=== PATIENT | female | born 1985 | race Caucasian/White ===

== ENCOUNTER 2017-10-26 21:50 | Emergency (ER) | END 2017-10-27 01:27 | disposition home or self-care (01) ==

== ENCOUNTER 2018-04-30 17:33 | Inpatient (IN) | payer MEDICAID ==
[~2018-04-30] VITALS: Ht 165.1 cm; Wt 81.4 kg
[~2018-04-30 17:33] MED LIST: ACET500C5 PO
[2018-04-30 19:04] VITALS: BP 131/70; PULSE 76; RESP 18; Ht 165.1 cm; Wt 81.4 kg
[2018-04-30] MEDS ORDERED: AL HYDROX/MG HYDROX/SIMETH 30 ML CUP PO PRN (21:30)
[2018-04-30] MEDS ORDERED: ACETAMINOPHEN 325 MG TAB PO PRN (21:30)
[2018-04-30] MEDS: DEXAMETHASONE 4 MG/ML 5 ML INJ IM SCH (22:31)
--- NOTE | 2018-04-30 23:03 | TRIAGE ---
OB Triage Datetime Report Generated by CPN: 04/30/2018 23:02 Datetime: 04/30/2018 22:17 Vaginal Exam Membrane Status: Intact Datetime: 04/30/2018 21:22 Stage of : OB Triage Monitor Mode: External Quality: Mild Pattern: Normal: <= 5 Contractions in 10 Minutes Resting Tone [place]: Relaxed Heart Rate FHR Baseline Rate: 135 Monitor Mode: External US FHR Baseline Changes: No Baseline Change Variability: Moderate 6-25 bpm Accelerations: 15X15 Decelerations: None Category: Category I Datetime: 04/30/2018 20:30 Stage of : OB Triage Labor Evaluation Frequency: 4-10 Monitor Mode: External Duration (sec)2399: 40 Quality: Mild Pattern: Normal: <= 5 Contractions in 10 Minutes Resting Tone [place]: Relaxed Heart Rate FHR Baseline Rate: 140 Monitor Mode: External US FHR Baseline Changes: No Baseline Change Variability: Moderate 6-25 bpm Accelerations: 15X15 Decelerations: Variable Category: Category II Pain Assessment Pain Scale: 3 Pain Presence: Intermittent Pain Type: Cramping Pain Location: Abdomen Datetime: 04/30/2018 19:50 Stage of : OB Triage Monitor Mode: External Quality: Mild Pattern: Normal: <= 5 Contractions in 10 Minutes Resting Tone [place]: Relaxed Heart Rate FHR Baseline Rate: 145 Monitor Mode: External US FHR Baseline Changes: No Baseline Change Variability: Moderate 6-25 bpm Accelerations: 15X15 Decelerations: None Category: Category I Datetime: 04/30/2018 19:17 Time of Arrival: 04/30/2018 17:28 EGA: 33.4 Arrived By: Ambulatory Arrived From: Home Chief Complaint: SENT FROM CLINIC FOR EVALUATION OF hbp AND CRAMPING Movement: Present Contractions: Irregular Time Contractions Began: 04/30/2018 13:00 Rupture of Membranes: Denies Vaginal Bleeding: None Vaginal Discharge: Denies Recent Sexual Intercouse: Denies Abdominal Trauma: Not Applicable Patient Complaints: Cramping Time Provider Notified: 04/30/2018 19:00 Provider Notified: Dr Burgess Initial Plan: EFM,CBC,UA,URINE CULTURE,CMP,URIC ACID,BPP,EFW,CVL Datetime: 04/30/2018 19:01 Stage of : OB Triage Maternal Assessment Level of Consciousness: Fully Conscious DTR's/Clonus: DTRs 2+; No Clonus Headache: Denies Blurred Vision: No Respiratory Effort: Unlabored Nausea/Vomiting: Denies RUQ Epigastric Pain: Denies Facial Edema: None Monitor Mode: External Resting Tone [place]: Relaxed Monitor Mode: External US Comments: FHT 150 Pain Assessment Pain Scale: 5 Pain Presence: Intermittent Pain Type: Cramping Pain Location: Abdomen
--- NOTE | 2018-05-01 00:33 | HP ---
Date/Time of Note Date/Time of Note DATE: 05/01/18 TIME: 00:11 OB - History Hx of Present Free Text/Dictation 33 y.o at 33w4d sent from clinic for high BP which was at the office 157/96 here at triage 120-130/70 EFM revealed mild frequent uterine activities but CVL 3.9 U.S shows EFW 1787 with 9% with 32w measurement compare to her GA which was 33w4d BPP 8/8 DOREEN 12.92 will admit to antepartum for further observation of BP and preinatalogy consultation for IUGR and slso give BMZ for preparation of possible early delivery. Chief Complaint: high BP and abdominal cramping pain sine 1210 on 04/30/18 Estimated Due Date: Jun 14, 2018 : 5 Para: 4 Spontaneous : 0 Care: Good Care Ultrasounds: Normal mid trimester US Obstetrical Complications: Gestational Diabetes, Gestational Hypertension Medical Complications: None Past Family/Social History * Past Medical, Surgical, Family and Obstetric Histories reviewed from chart. Blood Type: O+ Rubella: immune RPR/VDRL: Negative GBS Status: Unknown HBsAG: Negative OB Admission Exam Physical Exam HEENT: WNL Heart: Rhythm Normal Lungs: Clear, Equal Abdomen: WNL Extremities: Normal Reflexes: Normal Cervical Dilatation: other Effacement: Other Station: Other Membranes: Intact Amniotic Fluid: Unevaluable Heart Rate: 130's Accelerations: Accelerations Present Decelerations: No Decelerations Varibility: Moderate Contractions on Admission: < 5 Minutes Apart Intensity: Mild Last 72 hours Lab Results CBC & BMP 04/30/18 19:50 Liver Function Test 04/30/18 19:50 Alanine Aminotransferase (ALT/SGPT) 23 Albumin 3.4 Alkaline Phosphatase 170 H Aspartate Amino Transf (AST/SGOT) 24 Direct Bilirubin 0.00 Total Protein 6.8 OB Assessment/Plan Reason for admission: labor, other (HTN) Other Assessment: IUP 33.4 w IUGR R/O PTL PIH Plan: Other (observation ) Other plan: consultation DEIRDRE CRAFT MD May 01, 2018 00:23
[2018-05-01] MEDS: DEXAMETHASONE 4 MG/ML 5 ML INJ IM SCH ×2 (11:10→22:24)
[2018-05-01] MEDS: PRENATAL VITAMIN PO SCH (11:10)
--- NOTE | 2018-05-01 15:22 | QN ---
Documentation Comment she is here for possible PIH and IUGR was seen by Dr. Wright BPs mostly normal, few slightly elevated BP she denies headache, visual changes or RUQ pain plan: 24 hour urine collection RANJIT ORTEZ MD May 01, 2018 15:22
[2018-05-01] MEDS: ACCU-CHEK XX SCH (20:27)
--- NOTE | 2018-05-02 03:55 | CONS ---
DATE OF ADMISSION: 04/30/2018 DATE OF CONSULTATION: 05/01/2018 HISTORY OF PRESENT ILLNESS: The patient is IUP at 33 weeks and 5 days, presented secondary to elevat ed blood pressures. Her blood pressures have been in normal to moderate range without blood pressure medications. She has been hypertensive, prior to without any medication. She has no headache, shortness of breath, chest pain, or change in vision. PAST SURGICAL HISTORY: Not significant for elevated blood pressure. OBSTETRIC HISTORY: Significant for this . She is also diabetic, diet controlled. REVIEW OF SYSTEMS: All systems negative except what is mentioned above. PHYSICAL EXAMINATION: VITAL SIGNS: Blood pressure currently is 142/89. Physical examination deferred. heart tones reassuring for gestational age, no contractions. LABORATORY VALUES: Creatinine, AST, ALT, and platelets are normal. A 24-hour urine for protein has not been ordered. UA negative for protein. IMPRESSION: 1. Intrauterine at 33 weeks and 6 days. 2. Gestational hypertension. Please do note that the patient does not have blood pressure prior to . Laboratory results are normal and 24-hour urine has not been ordered, but will be ordered. She is re ceiving dexamethasone. Diabetes is diet controlled and despite dexamethasone values have been normal. RECOMMENDATIONS: A 24-hour urine for protein and creatinine clearance. If she is not diagnosed with severe preeclampsia after 24-hour urine for protein has resulted and blo od pressures remain in the normal to moderate range and heart tones remained reassuring, the pa tietiti can be discharged then and after discharge twice weekly monitoring and once a week lab results, mild preeclampsia, delivery at 37 weeks, severe preeclampsia at 34 weeks. Continued heart ton e monitoring. Dictated By: KADE IBARRA MD ST/NTS Conf#: [id number] DID#: [id number] CC: RANJIT ORTEZ MD;*EndCC*
[2018-05-02] MEDS: ACCU-CHEK XX SCH (08:00)
[2018-05-02] MEDS: PRENATAL VITAMIN PO SCH (09:08)
[2018-05-02] MEDS: DEXAMETHASONE 4 MG/ML 5 ML INJ IM SCH (10:58)
--- NOTE | 2018-05-02 18:22 | DS ---
Date/Time of Note Date/Time of Note DATE: 05/02/18 TIME: 18:10 Obstetrical Discharge Record Final Diagnosis Final Diagnosis: not delivered Other Final Diagnosis GHTN A1DM IUGR S/P x4 dexamethasone IUP 33w6d Complications Gestational Diabetes, Preg induced Hypertension, Other (IUGR) Augmentation: No Induction: No Rupture of Membranes: No Condition on Discharge Physical Assessment Last Vitals: BP range 120-140/60/70 without medication BS 148 at 0223/ EFM CAT I tracing 24hr urine protein 315mg/24hr Rec by MFM discharge home ,f/u with biweekly antepartum test and wkly lab test Add: no comment on IUGR advise her to inform her OB regarding this issue Voiding: Yes Bowel Movement: Yes Breast: Soft, non-tender Fundus: Other Calf Tenderness: No Patient Condition: Stable ( ) DEIRDRE CRAFT MD May 02, 2018 18:22
--- NOTE | 2018-05-02 18:27 | PD.PPDC ---
TITLE PROCESSOR Discharge Instruction Diagnosis [id number] Final Diagnosis: [id number] IUP 33w6d GHTN A1DM IUGR s/p dexamethasonex4 Condition [id number] Patient Condition: [id number] Stable ( ) Diet Special Diet: ADA 2000cal Activity/Restrictions [id number] Activity: [id number] Normal Activity Follow-up Provider Information: RTH in 3days for antepartum test or arrange with MFM or prn if DFM or other subjective sx of preeclampsia Return to clinic for [id number] OB Instructions: [id number] Blurried Vision Headache DEIRDRE CRAFT MD May 02, 2018 18:27
== END 2018-05-02 20:20 | disposition home or self-care (01) | DRG 833 ==
LOC: OBT 17:33 → L-D 17:33 → OBT 21:22 → PP1 05-01 09:23
PROVIDERS: ADMIT Specialist; ATTEND Specialist
DX: O60.03 Preterm labor without delivery, third trimester (principal); O13.3 Gestational [pregnancy-induced] hypertension without significant proteinuria, third trimester; O24.410 Gestational diabetes mellitus in pregnancy, diet controlled; O36.5930 Maternal care for other known or suspected poor fetal growth, third trimester, not applicable or unspecified; O09.523 Supervision of elderly multigravida, third trimester; Z3A.33 33 weeks gestation of pregnancy
CPT/HCPCS: 76815; 76817; 76818; 80053; 81003; 82575; 82962; 84156; 84560; 85025; 85384; 85610; 85730; G0463; J1100

== ENCOUNTER 2018-05-05 11:22 | Inpatient (IN) | payer MEDICAID ==
[~2018-05-05] VITALS: Ht 165.1 cm; Wt 80.2 kg
[2018-05-05] MEDS ORDERED: PREN-93 PO (11:37)
[2018-05-05 11:38] VITALS: Ht 165.1 cm; Wt 80.2 kg
[2018-05-05 11:42] VITALS: BP 140/93; PULSE 102; RESP 18
--- NOTE | 2018-05-05 13:48 | TRIAGE ---
OB Triage Datetime Report Generated by CPN: 05/05/2018 13:47 Datetime: 05/05/2018 12:30 Stage of : OB Triage Maternal Assessment Level of Consciousness: Fully Conscious Labor Evaluation Frequency: NONE Monitor Mode: External Resting Tone [place]: Relaxed Heart Rate FHR Baseline Rate: 145 Monitor Mode: External US Variability: Moderate 6-25 bpm Accelerations: 15X15 Decelerations: None Category: Category I Pain Assessment Pain Scale: 3 Pain Goal: 3 Vaginal Exam Membrane Status: Intact Vaginal Bleeding: None Datetime: 05/05/2018 11:32 Stage of : OB Triage Time of Arrival: 05/05/2018 11:18 EGA: 34.2 Arrived By: Ambulatory Arrived From: Home Chief Complaint: PT. HERE FOR NST/BPP FOR GHTN Movement: Present Contractions: Denies/Absent Rupture of Membranes: Denies Vaginal Bleeding: None Vaginal Discharge: Denies Recent Sexual Intercouse: Denies Abdominal Trauma: Not Applicable Patient Complaints: Headache; Epigastric Pain Time Provider Notified: 05/05/2018 13:33 Provider Notified: TEELIDYA Initial Plan: PIH PANEL/BPP Temperature Route: Oral Datetime: 05/05/2018 11:30 Monitor Mode: External Monitor Mode: External US Datetime: 05/02/2018 19:15 Stage of : Antepartum Datetime: 05/02/2018 18:40 Stage of : Antepartum Maternal Assessment Level of Consciousness: Fully Conscious Headache: Denies RUQ Epigastric Pain: Denies Pain Assessment Pain Scale: 0 Pain Presence: None/Denies Pain Type: N/A Datetime: 05/02/2018 17:40 Stage of : Antepartum Datetime: 05/02/2018 16:20 Stage of : Antepartum Maternal Assessment Level of Consciousness: Fully Conscious Headache: Denies Nausea/Vomiting: Denies RUQ Epigastric Pain: Denies Pain Assessment Pain Scale: 0 Pain Presence: None/Denies Pain Type: N/A Datetime: 05/02/2018 14:55 Stage of : Antepartum Pain Assessment Pain Scale: 0 Pain Presence: None/Denies Pain Type: N/A Datetime: 05/02/2018 13:30 Stage of : Antepartum Datetime: 05/02/2018 11:12 Labor Evaluation Frequency: 0 Monitor Mode: External Duration (sec)2399: 0 Contraction Comments: NO CTX'S NOTED PER TOCO, PT DENIES CTX'S AT THIS TIME. Heart Rate FHR Baseline Rate: 135 Monitor Mode: External US Variability: Moderate 6-25 bpm Accelerations: 15X15 Decelerations: None Category: Category I Comments: nst COMPLETE Datetime: 05/02/2018 10:35 Comments: EFM AND TOCO PLACED FOR NST Datetime: 05/02/2018 08:00 Assessment Type: Ongoing Assessment Maternal Assessment Level of Consciousness: Fully Conscious DTR's/Clonus: DTRs 2+; No Clonus Headache: Denies Blurred Vision: No Respiratory Effort: Unlabored; Regular Rhythm; Equal Expansion Breath Sounds, Left: Clear and Equal Breath Sounds, Right: Clear and Equal Nausea/Vomiting: Denies RUQ Epigastric Pain: Denies Lower Extremities Edema: None Upper Extremities Edema: None Facial Edema: None Fall Risk Assessment History of Falling: (0) No Secondary Diagnosis: (0) No Ambulatory Aid: (0) Bedrest/Nurse Assist IV Therapy: (0) No Gait: (0) Normal/Bedrest/Immobile Mental Status: (0) Oriented to Own Ability Fall Score: 0 Fall Risk Score Definition: No Risk: No action required Datetime: 05/02/2018 07:59 Stage of : Antepartum Maternal Assessment Level of Consciousness: Fully Conscious DTR's/Clonus: DTRs 2+; No Clonus Headache: Denies Breath Sounds, Left: Clear and Equal Breath Sounds, Right: Clear and Equal Nausea/Vomiting: Denies RUQ Epigastric Pain: Denies Pain Assessment Pain Scale: 0 Pain Presence: None/Denies Pain Type: N/A Datetime: 05/02/2018 00:06 Pain Assessment Pain Scale: 0 Pain Presence: None/Denies Datetime: 05/01/2018 20:24 Labor Evaluation Frequency: 0 Monitor Mode: External Heart Rate FHR Baseline Rate: 130 Monitor Mode: External US FHR Baseline Changes: No Baseline Change Variability: Moderate 6-25 bpm Accelerations: 15X15 Decelerations: None Category: Category I Datetime: 05/01/2018 20:23 Bedside Blood Glucose: 148 Datetime: 05/01/2018 20:00 Labor Evaluation Frequency: 0 Monitor Mode: External Heart Rate FHR Baseline Rate: 130 Monitor Mode: External US Datetime: 05/01/2018 19:48 Comments: NST STARTED Datetime: 05/01/2018 19:45 Maternal Assessment Level of Consciousness: Fully Conscious DTR's/Clonus: DTRs 2+; No Clonus Headache: Denies Blurred Vision: No Respiratory Effort: Unlabored; Regular Rhythm; Equal Expansion Breath Sounds, Left: Clear and Equal Breath Sounds, Right: Clear and Equal Nausea/Vomiting: Denies RUQ Epigastric Pain: Denies Lower Extremities Edema: None Upper Extremities Edema: None Facial Edema: None Temperature Route: Oral Fall Risk Assessment History of Falling: (0) No Secondary Diagnosis: (0) No Ambulatory Aid: (0) Bedrest/Nurse Assist IV Therapy: (0) No Gait: (0) Normal/Bedrest/Immobile Mental Status: (0) Oriented to Own Ability Fall Score: 0 Fall Risk Score Definition: No Risk: No action required Pain Assessment Pain Scale: 0 Pain Presence: None/Denies Datetime: 05/01/2018 14:50 Bedside Blood Glucose: 152 Labor Evaluation Frequency: none Monitor Mode: External Pattern: Normal: <= 5 Contractions in 10 Minutes Resting Tone [place]: Relaxed Heart Rate FHR Baseline Rate: 140 Monitor Mode: External US FHR Baseline Changes: No Baseline Change Variability: Moderate 6-25 bpm Accelerations: 15X15 Decelerations: None Category: Category I Datetime: 05/01/2018 14:00 Labor Evaluation Frequency: none Monitor Mode: External Pattern: Normal: <= 5 Contractions in 10 Minutes Resting Tone [place]: Relaxed Heart Rate FHR Baseline Rate: 125 Monitor Mode: External US FHR Baseline Changes: No Baseline Change Variability: Moderate 6-25 bpm Accelerations: 15X15 Decelerations: None Category: Category I Datetime: 05/01/2018 13:00 Labor Evaluation Frequency: none Monitor Mode: External Pattern: Normal: <= 5 Contractions in 10 Minutes Resting Tone [place]: Relaxed Heart Rate FHR Baseline Rate: 125 Monitor Mode: External US FHR Baseline Changes: No Baseline Change Variability: Moderate 6-25 bpm Accelerations: 15X15 Decelerations: None Category: Category I Datetime: 05/01/2018 12:00 Labor Evaluation Frequency: none Monitor Mode: External Pattern: Normal: <= 5 Contractions in 10 Minutes Resting Tone [place]: Relaxed Heart Rate FHR Baseline Rate: 130 Monitor Mode: External US FHR Baseline Changes: No Baseline Change Variability: Moderate 6-25 bpm Accelerations: 15X15 Decelerations: None Category: Category I Datetime: 05/01/2018 11:00 Labor Evaluation Frequency: none Monitor Mode: External Pattern: Normal: <= 5 Contractions in 10 Minutes Resting Tone [place]: Relaxed Heart Rate FHR Baseline Rate: 135 Monitor Mode: External US FHR Baseline Changes: No Baseline Change Variability: Moderate 6-25 bpm Accelerations: 15X15 Decelerations: None Category: Category I Datetime: 05/01/2018 10:29 Bedside Blood Glucose: 105 Datetime: 05/01/2018 10:28 Temperature Route: Oral Pain Assessment Pain Scale: 2 Pain Presence: None/Denies Pain Goal: 0 Datetime: 05/01/2018 10:00 Labor Evaluation Frequency: NONE Monitor Mode: External Pattern: Normal: <= 5 Contractions in 10 Minutes Resting Tone [place]: Relaxed Heart Rate FHR Baseline Rate: 140 Monitor Mode: External US FHR Baseline Changes: No Baseline Change Variability: Moderate 6-25 bpm Accelerations: 15X15 Decelerations: None Category: Category I Datetime: 05/01/2018 09:32 Pattern: Normal: <= 5 Contractions in 10 Minutes Resting Tone [place]: Relaxed Contraction Comments: no uc Heart Rate FHR Baseline Rate: 135 Variability: Moderate 6-25 bpm Accelerations: 15X15 Decelerations: None Category: Category I Datetime: 05/01/2018 09:01 Labor Evaluation Frequency: x1 Monitor Mode: External Duration (sec)2399: 60 Quality: Mild Pattern: Normal: <= 5 Contractions in 10 Minutes Resting Tone [place]: Relaxed Heart Rate FHR Baseline Rate: 135 Monitor Mode: External US Variability: Moderate 6-25 bpm Accelerations: 15X15 Decelerations: None Category: Category I Pain Presence: None/Denies Pain Type: N/A Datetime: 05/01/2018 08:22 Assessment Type: Ongoing Assessment Maternal Assessment Level of Consciousness: Fully Conscious DTR's/Clonus: DTRs 2+; No Clonus Headache: Denies Blurred Vision: No Respiratory Effort: Unlabored; Regular Rhythm; Equal Expansion Breath Sounds, Left: Clear and Equal Breath Sounds, Right: Clear and Equal Nausea/Vomiting: Denies RUQ Epigastric Pain: Denies Lower Extremities Edema: None Degree: None Upper Extremities Edema: None Degree: None Facial Edema: None Fall Risk Assessment History of Falling: (0) No Secondary Diagnosis: (0) No Ambulatory Aid: (0) Bedrest/Nurse Assist IV Therapy: (0) No Gait: (0) Normal/Bedrest/Immobile Mental Status: (0) Oriented to Own Ability Fall Score: 0 Fall Risk Score Definition: No Risk: No action required Datetime: 05/01/2018 07:59 Labor Evaluation Frequency: x2 Monitor Mode: External Duration (sec)2399: 60-80 Quality: Mild Pattern: Normal: <= 5 Contractions in 10 Minutes Resting Tone [place]: Relaxed Heart Rate FHR Baseline Rate: 135 Monitor Mode: External US Variability: Moderate 6-25 bpm Accelerations: 15X15 Decelerations: None Category: Category I Pain Presence: None/Denies Pain Type: N/A Datetime: 05/01/2018 07:20 Bedside Blood Glucose: 114 Datetime: 05/01/2018 06:58 Monitor Mode: External US Comments: MATERNAL MOVEMENT, MONITOR LOSS OF CONTACT Datetime: 05/01/2018 06:22 Labor Evaluation Frequency: x1/hr Monitor Mode: External Resting Tone [place]: Relaxed Contraction Comments: uterine irritability noted Heart Rate FHR Baseline Rate: 125 Monitor Mode: External US Variability: Moderate 6-25 bpm Accelerations: 15X15 Decelerations: None Category: Category I Pain Assessment Pain Scale: 0 Pain Presence: None/Denies Pain Type: N/A Datetime: 05/01/2018 05:24 Labor Evaluation Frequency: X1/HR Monitor Mode: External Duration (sec)2399: 60 Resting Tone [place]: Relaxed Heart Rate FHR Baseline Rate: 125 Monitor Mode: External US Variability: Moderate 6-25 bpm Accelerations: 15X15 Decelerations: None Category: Category I Datetime: 05/01/2018 04:24 Labor Evaluation Frequency: x1/hr Monitor Mode: External Duration (sec)2399: 50 Quality: Mild Resting Tone [place]: Relaxed Heart Rate FHR Baseline Rate: 130 Monitor Mode: External US Variability: Moderate 6-25 bpm Accelerations: 15X15 Decelerations: None Category: Category I Datetime: 05/01/2018 04:03 Temperature Route: Oral Pain Assessment Pain Scale: 0 Pain Presence: None/Denies Pain Type: N/A Datetime: 05/01/2018 03:24 Labor Evaluation Frequency: x2/hr Monitor Mode: External Duration (sec)2399: 60-100 Resting Tone [place]: Relaxed Heart Rate FHR Baseline Rate: 125 Monitor Mode: External US Variability: Moderate 6-25 bpm Accelerations: 15X15 Decelerations: None Category: Category I Comments: baseline changing to 125bpm, previously at 135bpm for majority of the past hour Pain Assessment Pain Scale: 0 Pain Presence: None/Denies Pain Type: N/A Datetime: 05/01/2018 02:24 Labor Evaluation Frequency: irregular Monitor Mode: External Duration (sec)2399: 40-70 Resting Tone [place]: Relaxed Contraction Comments: some uterine irritability noted Heart Rate FHR Baseline Rate: 135 Monitor Mode: External US Variability: Moderate 6-25 bpm Accelerations: 15X15 Decelerations: None Category: Category I Comments: Change from previous baseline of 125bpm Datetime: 05/01/2018 01:24 Labor Evaluation Frequency: irregular Monitor Mode: External Duration (sec)2399: 40-70 Quality: Mild Resting Tone [place]: Relaxed Contraction Comments: some uterine irritability noted Heart Rate FHR Baseline Rate: 125 Monitor Mode: External US Variability: Moderate 6-25 bpm Accelerations: 15X15 Decelerations: None Category: Category I Comments: change in baseline from 135bpm Datetime: 05/01/2018 00:45 Labor Evaluation Frequency: irregular Monitor Mode: External Duration (sec)2399: 40-70 Quality: Mild Resting Tone [place]: Relaxed Heart Rate FHR Baseline Rate: 135 Monitor Mode: External US Variability: Moderate 6-25 bpm Accelerations: 15X15 Decelerations: None Category: Category I Datetime: 05/01/2018 00:18 Stage of : Antepartum Assessment Type: Admission Assessment Maternal Assessment Level of Consciousness: Fully Conscious DTR's/Clonus: DTRs 2+; No Clonus Headache: Denies Blurred Vision: No Respiratory Effort: Unlabored; Regular Rhythm; Equal Expansion Breath Sounds, Left: Clear and Equal Breath Sounds, Right: Clear and Equal Nausea/Vomiting: Denies RUQ Epigastric Pain: Denies Lower Extremities Edema: None Degree: None Upper Extremities Edema: None Degree: None Facial Edema: None Temperature Route: Oral Fall Risk Assessment History of Falling: (0) No Secondary Diagnosis: (0) No Ambulatory Aid: (0) Bedrest/Nurse Assist IV Therapy: (0) No Gait: (0) Normal/Bedrest/Immobile Mental Status: (0) Oriented to Own Ability Fall Score: 0 Fall Risk Score Definition: No Risk: No action required Pain Assessment Pain Scale: 2 Pain Presence: Intermittent Pain Type: Contraction; Pressure Pain Location: Abdomen Pain Assessment Comments: Pt states she feels mostly tightness with Datetime: 04/30/2018 23:59 Monitor Mode: External US Datetime: 04/30/2018 23:50 Stage of : Antepartum Labor Evaluation Frequency: irregular Monitor Mode: External Duration (sec)2399: 60-80 Quality: Mild Pattern: Normal: <= 5 Contractions in 10 Minutes Resting Tone [place]: Relaxed Heart Rate FHR Baseline Rate: 125 Monitor Mode: External US Variability: Moderate 6-25 bpm Accelerations: 15X15 Decelerations: None Category: Category I Datetime: 04/30/2018 22:45 Stage of : Antepartum Labor Evaluation Frequency: X2 Monitor Mode: External Duration (sec)2399: 40-50 Quality: Mild Pattern: Normal: <= 5 Contractions in 10 Minutes Resting Tone [place]: Relaxed Contraction Comments: MILD IRRITABILITY NOTED Heart Rate FHR Baseline Rate: 135 Monitor Mode: External US Variability: Moderate 6-25 bpm Accelerations: 15X15 Decelerations: None Category: Category I Datetime: 04/30/2018 21:44 Stage of : Antepartum Labor Evaluation Frequency: 5-12 Monitor Mode: External Duration (sec)2399: 40-60 Quality: Mild Pattern: Normal: <= 5 Contractions in 10 Minutes Resting Tone [place]: Relaxed Heart Rate FHR Baseline Rate: 135 Monitor Mode: External US Variability: Moderate 6-25 bpm Accelerations: 15X15 Decelerations: None Category: Category I Datetime: 04/30/2018 21:33 Stage of : Antepartum Datetime: 04/30/2018 21:30 Time of Arrival: 05/01/2018 21:30 EGA: 33.5 Arrived By: Transfer Arrived From: TRIAGE Datetime: 04/30/2018 19:17 EGA: 33.4
[2018-05-05] MEDS: ACETAMINOPHEN 325 MG TAB PO PRN (14:14)
--- NOTE | 2018-05-05 18:59 | HP ---
Date/Time of Note Date/Time of Note DATE: 05/05/18 TIME: 18:56 OB - History Hx of Present Free Text/Dictation 33 YO with IUP at 34.2 weeks. she had steroids last week. she has preeclampsia. she c/o headache and RUQ pain. she also reports her breathing is different. she looks comfortable. Care: Good Care Ultrasounds: Normal mid trimester US Obstetrical Complications: None, Pre-eclampsia Medical Complications: None Past Family/Social History * Past Medical, Surgical, Family and Obstetric Histories reviewed from chart. OB Admission Exam Vital Signs Vital Signs Vital Signs Date Temp Pulse Resp B/P (MAP) Pulse Ox O2 O2 Flow FiO2 Time Delivery Rate 05/05/18 98.1 102 18 140/93 Room Air 11:42 (109) Physical Exam HEENT: WNL Heart: Rhythm Normal Lungs: Clear, Equal Abdomen: WNL Extremities: Normal Reflexes: Normal Last 72 hours Lab Results CBC & BMP 05/05/18 11:40 Liver Function Test 05/05/18 11:40 Alanine Aminotransferase (ALT/SGPT) 27 Albumin 3.7 Alkaline Phosphatase 180 H Aspartate Amino Transf (AST/SGOT) 37 Direct Bilirubin 0.00 Total Protein 7.2 OB Assessment/Plan Other Assessment: Preeclampsia with severe features Induction Method: per Misoprostol Protocol RANJIT ORTEZ MD May 05, 2018 18:59
[2018-05-05] MEDS: ACCU-CHEK XX SCH (20:25)
[2018-05-05] MEDS ORDERED: LACTATED RINGER'S 1,000 ML IV PRN (23:18)
[2018-05-05] MEDS ORDERED: METHYLERGONOVINE 0.2 MG INJ IM PRN (23:30)
[2018-05-05] MEDS ORDERED: BUTORPHANOL 2 MG INJ IV PRN (23:30)
[2018-05-05] MEDS ORDERED: IBUPROFEN 600 MG TAB PO PRN (23:30)
[2018-05-05] MEDS ORDERED: CARBOPROST 250 MCG INJ IM PRN (23:30)
[2018-05-05] MEDS ORDERED: OXYTOCIN 30 UNITS/LR 500 ML IV SCH ×3 (23:30)
[2018-05-05] MEDS ORDERED: MISOPROSTOL 200 MCG TAB PR PRN (23:30)
[2018-05-05] MEDS ORDERED: OXYTOCIN 30 UNITS/LR 500 ML IV PRN (23:30)
[2018-05-05] MEDS ORDERED: LIDOCAINE 1% (MPF) 30 ML INJ INJ PRN (23:30)
[2018-05-05] MEDS: LACTATED RINGER'S 1,000 ML IV SCH (23:38)
[2018-05-06] MEDS ORDERED: AMPICILLIN 2 GM/NS (PMX) 100 ML IV ONE (04:00)
[2018-05-06] MEDS: LACTATED RINGER'S 1,000 ML IV SCH ×3 (04:01→23:25)
[2018-05-06] MEDS: AMPICILLIN 1 GM/NS (PMX) 50 ML IV SCH ×5 (07:44→23:51)
[2018-05-06] MEDS: ACCU-CHEK XX SCH ×2 (07:52→20:00)
[2018-05-06] MEDS: ACETAMINOPHEN 325 MG TAB PO PRN (16:18)
--- NOTE | 2018-05-06 20:13 | QN ---
Documentation Comment she reports mild headache, she denies breathing problems, visual changes or RUQ pain. BPs are stable cervix is 2 cm had break from Pitocin will restart Pitocin RANJIT ORTEZ MD May 06, 2018 20:13
[2018-05-07] MEDS: AMPICILLIN 1 GM/NS (PMX) 50 ML IV SCH ×3 (05:03→12:00)
[2018-05-07] MEDS: ACCU-CHEK XX SCH ×2 (07:52→12:07)
--- NOTE | 2018-05-07 08:42 | QN ---
Documentation Comment NST reassuring AROM: Clear RANJIT ORTEZ MD May 07, 2018 08:42
[2018-05-07] MEDS: LACTATED RINGER'S 1,000 ML IV SCH ×2 (08:47→09:50)
--- NOTE | 2018-05-07 09:42 | PREAC ---
Date/Time of Note Date/Time of Note DATE: 05/07/18 TIME: 09:41 Anesthesia Eval and Record Evaluation Time Pre-Procedure Interview DATE: 05/07/18 TIME: 09:41 Age 33 Sex female NPO: 8 hrs Preoperative diagnosis labor pain Planned procedure labor epidural Past Medical History Past Medical History: None Surgery & Anesthesia Issues No known issue Meds Anticoagulation: No Beta Robbin within 24 hr: No Reason Beta Robbin not given: Pt. not on B-Robbin Reported Medications Vit No.124/Iron/FA ( Vitamin Tablet) 1 Each Tablet, 1 EACH PO DAILY, TAB 05/05/18 Discontinued Scripts Acetaminophen* (Tylophen*) 500 Mg Capsule, 1 CAP PO Q6H PRN for PAIN AND OR ELEVATED TEMP, #30 CAP Prov:TEJAS COBOS PA-C 10/27/17 Current Medications Acetaminophen (Tylenol Tab) 650 mg Q4H PRN PO .PAIN OR TEMP Last administered on 05/06/18at 16:18; Admin Dose 650 MG; Start 05/05/18 at 14:00 Diagnostic Test (Pha) (Accu-Chek) 1 ea FBSPP XX Last administered on 05/07/18at 07:52; Admin Dose 1 EA; Start 05/05/18 at 19:35 Lactated Ringer's 1,000 ml @ 125 mls/hr Q8H IV Last administered on 05/07/18at 08:47; Admin Dose 125 MLS/HR; Start 05/05/18 at 23:18 Ampicillin 50 ml @ 100 mls/hr Q4H IV Last administered on 05/07/18at 08:56; Admin Dose 100 MLS/HR; Start 05/06/18 at 08:00 Butorphanol Tartrate (Stadol) 2 mg Q2H PRN IV .PAIN; Start 05/05/18 at 23:30 Lidocaine (Xylocaine 1% (Mpf)) 30 ml ONCE PRN INJ .EPISIOTOMY; Start 05/05/18 at 23:30 Oxytocin/Lactated Ringer's 500 ml @ 500 mls/hr ONCE POST IV ; Start 05/05/18 at 23:30 Oxytocin/Lactated Ringer's 500 ml @ 125 mls/hr POST IV ; Start 05/05/18 at 23:30 Ibuprofen (Motrin) 600 mg ONCE PRN PO .PAIN 1-5; Start 05/05/18 at 23:30 Lactated Ringer's 1,000 ml @ 2,000 mls/hr Q30M PRN IV .ANESTHESIA; Start 05/05/18 at 23:18 Oxytocin/Lactated Ringer's 500 ml @ 0 mls/hr ONCE PRN IV .VAGINAL BLEEDING; Start 05/05/18 at 23:30 Methylergonovine Maleate (Methergine) 0.2 mg ONCE PRN IM .VAGINAL BLEEDING; Start 05/05/18 at 23:30 Carboprost Tromethamine (Hemabate) 250 mcg ONCE PRN IM .VAGINAL BLEEDING; Start 05/05/18 at 23:30 Misoprostol (Cytotec) 1,000 mcg ONCE PRN MN .VAGINAL BLEEDING; Start 05/05/18 at 23:30 Oxytocin/Lactated Ringer's 500 ml @ 0 mls/hr FOR INDUCTION IV Last administered on 05/05/18at 23:41; Admin Dose 1 MLS/HR; Start 05/05/18 at 23:30 Meds reviewed: Yes Allergies Coded Allergies: No Known Allergy (Verified , 09/01/13) Allergies Reviewed: Yes Labs/Studies Labs Reviewed: Reviewed by anesthesiologist Result Diagram: 05/05/18 2200 05/05/18 1140 test: Positive Pre-procedure Exam Last vitals Vital Signs Date Temp Pulse Resp B/P (MAP) Pulse Ox O2 O2 Flow FiO2 Time Delivery Rate 05/05/18 98.1 102 18 140/93 Room Air 11:42 (109) Airway: Adequate mouth opening, Adequate thyromental dist Mallampati: Mallampati III Teeth: Normal Lung: Normal Heart: Normal ASA Physical Status ASA physical status: 2 Emergency: None Planned Anesthetic Neuraxial: Epidural Planned Pain Management Epidural, Parenteral pain med, Other neuraxial med Pre-operative Attestations Prior to commencing anesthesia and surgery, the patient was re-evaluated, there was verification of: *The patient's identity *The results of appropriate recent lab work and preoperative vital signs *The above evaluation not changing prior to induction *Anesthetic plan, risk benefits, alternative and complications discussed with patient/family; questions answered; patient/family understands, accepts and wishes to proceed. BOOGIE RICHARDS MD May 07, 2018 09:42
[2018-05-07] MEDS ORDERED: ZOLPIDEM 5 MG TAB PO PRN ×2 (10:00→16:30)
[2018-05-07] MEDS ORDERED: KETOROLAC 30 MG INJ IV PRN (10:00)
[2018-05-07] MEDS ORDERED: ONDANSETRON 4 MG INJ IV PRN ×2 (10:00→16:30)
[2018-05-07] MEDS ORDERED: NALOXONE (0.4 MG/ML) INJ IV PRN (10:00)
[2018-05-07] MEDS ORDERED: DIPHENHYDRAMINE 50 MG INJ IV PRN (10:00)
[2018-05-07] MEDS ORDERED: FENTAnyl 2MCG/ML-ROPIV 0.2% 100 ML BAG EPI SCH (10:00)
[2018-05-07] MEDS ORDERED: HYDROmorphONE 0.5 MG/0.5 ML SYG IV PRN ×2 (10:00)
--- NOTE | 2018-05-07 11:06 | PAC ---
Date/Time of Note Date/Time of Note DATE: 05/07/18 TIME: 11:06 Post-Anesthesia Notes Post-Anesthesia Note Last documented vital signs Vital Signs Date Temp Pulse Resp B/P (MAP) Pulse Ox O2 O2 Flow FiO2 Time Delivery Rate 05/05/18 98.1 102 18 140/93 Room Air 11:42 (109) Activity: WNL Respiratory function: WNL Cardiovascular function: WNL Mental status: Baseline Pain reasonably controlled: Yes Hydration appropriate: Yes Nausea/Vomiting absent: Yes BOOGIE RICHARDS MD May 07, 2018 11:06
[2018-05-07] MEDS ORDERED: DIPHENOXYLATE/ATROPINE TAB PO ONE (14:00)
[2018-05-07] MEDS: LACTATED RINGER'S 1,000 ML IV* SCH (16:02)
[2018-05-07] MEDS ORDERED: OXYTOCIN 30 UNITS/LR 500 ML IV SCH (16:02)
--- NOTE | 2018-05-07 16:02 | LDN ---
Date/Time of Note Date/Time of Note DATE: 05/07/18 TIME: 15:58 Delivery Summary I was called to perform the delivery due to precipitous delivery Patient was undergoing induction due to IUGR She was feeling significant urge to push. Primary attending not available at this time. I Was asked to perform the delivery. Placenta Delivered: Spontaneously Meconium: none Episiotomy: No Indication for episiotomy N/A Perineal laceration: 1 Laceration repair: First-degree perineal laceration repaired using 3-0 chromic Anesthesia type: Epidural Estimated blood loss: 500 Sponge & Needle done & correct: Yes All needle counts correct: Yes Any foreign bodies felt in the: No Delivery Information Sex Sex: male Apgars 1 Minute: 8 5 Minute: 9 Suctioning Nose & mouth suctioned at brian: Yes Delee suction performed: Yes Umbilical Cord Umbilical cord with: 3 Vessels Cord presentations: nuchal cord Nuchal cord present X: 2 Cord Blood was obtained: Yes (Nuchal cord x2 with compression noted, released) Mother & Baby Disposition Disposition After delivery of the baby and delivery of the placenta hemorrhage noted. Uterus was boggy. Using uterine massage and IV Pitocin as well as thou sand micrograms of Cytotec rectally and 1 dose of Hemabate eventually bleeding controlled. Of note that there was a clots behind the placenta after delivery of the placenta noted to the size of about 5 x 5 cm consistent with likely abruption. Placenta was sent to pathology. First-degree perineal laceration noted that repaired using 3-0 chromic. Hemostasis was complete at the end of the delivery. Sponge lap and needle counts were correct x2 Patient was then transferred to recovery room in stable condition. Nurse was advised to monitor bleeding closely CUCA CRUZ MD May 07, 2018 16:01
[2018-05-07] MEDS ORDERED: HYDROCODONE/APAP (5/325) TAB PO PRN (16:30)
[2018-05-07] MEDS ORDERED: LANOLIN HPA 1 PKT TOP PRN (16:30)
[2018-05-07] MEDS ORDERED: CARBOPROST 250 MCG INJ IM PRN (16:30)
[2018-05-07] MEDS ORDERED: DIPHENHYDRAMINE 25 MG CAP PO PRN (16:30)
[2018-05-07] MEDS ORDERED: WITCH HAZEL/GLYCERIN PAD PR PRN (16:30)
[2018-05-07] MEDS ORDERED: ACETAMINOPHEN 325 MG TAB PO PRN (16:30)
[2018-05-07] MEDS ORDERED: OXYTOCIN 30 UNITS/LR 500 ML IV PRN (16:30)
[2018-05-07] MEDS ORDERED: MISOPROSTOL 200 MCG TAB PR PRN (16:30)
[2018-05-07 17:00] VITALS: BP 135/77; PULSE 64; RESP 20
[2018-05-07 18:00] VITALS: BP 134/74; PULSE 72; RESP 20
[2018-05-07] MEDS: IBUPROFEN 600 MG TAB PO SCH ×2 (18:00→23:56)
[2018-05-07 20:30] VITALS: BP 126/65; PULSE 86; RESP 18
[2018-05-07] MEDS: SENNA/DOCUSATE NA (8.6MG/50MG) TAB PO SCH (20:49)
[2018-05-08] MEDS: LACTATED RINGER'S 1,000 ML IV* SCH ×3 (00:02→16:02)
[2018-05-08 03:55] VITALS: BP 118/62; PULSE 85; RESP 17
[2018-05-08] MEDS: IBUPROFEN 600 MG TAB PO SCH ×4 (05:43→23:46)
[2018-05-08 08:15] VITALS: BP 107/62; PULSE 89; RESP 16
[2018-05-08] MEDS: SENNA/DOCUSATE NA (8.6MG/50MG) TAB PO SCH ×2 (09:00→21:25)
--- NOTE | 2018-05-08 13:57 | QN ---
Documentation Comment no c/o had bowel movement normotensive yesterday and today 'afebrile fundus firm lochia min calf neg for tenderness ppHnH 9.6/28.4 A S/P stable #1 P discharge home in am DEIRDRE CRAFT MD May 08, 2018 13:57
[2018-05-08 16:00] VITALS: BP 128/84; PULSE 100; RESP 16
[2018-05-08 20:00] VITALS: BP 132/70; PULSE 86; RESP 19
[2018-05-09 03:20] VITALS: BP 118/87; PULSE 87; RESP 20
[2018-05-09] MEDS: IBUPROFEN 600 MG TAB PO SCH ×2 (05:34→11:40)
[2018-05-09 08:00] VITALS: BP 130/82; PULSE 93; RESP 18
[2018-05-09] MEDS ORDERED: VARICELLA VACCINE LIVE/PF 1,350 UNIT/0.5 ML ML SC* ONE (09:00)
[2018-05-09] MEDS ORDERED: MEASLES,MUMPS,RUBELLA VACCINE INJ SC* ONE (09:00)
[2018-05-09] MEDS ORDERED: DIPHTH/TET/ACEL PERTUSS (ADULT) 0.5 ML VIAL IM* ONE (09:00)
[2018-05-09] MEDS: SENNA/DOCUSATE NA (8.6MG/50MG) TAB PO SCH (09:25)
--- NOTE | 2018-05-09 11:17 | QN ---
Documentation Comment day #2 Patient stable and afebrile Vital signs stable VS - Last 72 Hours, by Label Date Temp Pulse Resp B/P (MAP) Pulse Ox O2 O2 Flow FiO2 Time Delivery Rate 05/09/18 98.2 93 18 130/82 Room Air 08:00 (98) 05/09/18 98.1 87 20 118/87 Room Air 03:20 (97) 05/08/18 98.1 86 19 132/70 Room Air 20:00 (90) 05/08/18 98.9 100 16 128/84 Room Air 16:00 (99) 05/08/18 99.1 89 16 107/62 Room Air 08:15 (77) 05/08/18 97.9 85 17 118/62 Room Air 03:55 (80) 05/07/18 98.3 86 18 126/65 Room Air 20:30 (85) 05/07/18 98.2 72 20 134/74 Room Air 18:00 (94) 05/07/18 98.3 64 20 135/77 Room Air 17:00 (96) Hematology - 72 Hrs Test 05/08/18 06:34 Hematocrit 28.2 % (37.0-47.0) #L Hemoglobin 9.6 g/dl (12.0-16.0) #L Mean Corpuscular Hemoglobin 30.1 pg (29.0-33.0) Mean Corpuscular Hemoglobin Concent 34.0 g/dl (32.0-37.0) Mean Corpuscular Volume 88.4 fl (82.0-101.0) Mean Platelet Volume 10.5 fl (7.4-10.4) H Platelet Count 147 10^3/UL (140-415) # Red Blood Count 3.19 10^6/ul (4.20-5.40) #L Red Cell Distribution Width 13.4 % (11.5-14.5) White Blood Count 12.2 10^3/ul (4.8-10.8) #H Chemistry Test 05/06/18 20:18 05/07/18 07:52 05/07/18 12:09 Bedside Glucose 91 mg/dL (70-220) 70 mg/dL (70-220) 75 mg/dL (70-220) Abdomen soft, fundus firm Perineum intact Extremities nontender Assessment and plan Patient stable and doing well Instructed to continue with vitamins and iron Discharge home today Follow-up with clinic in 2 and 6 weeks JAYSHREE RAY MD May 09, 2018 11:17
--- NOTE | 2018-05-09 11:21 | DS ---
Date/Time of Note Date/Time of Note DATE: 05/09/18 TIME: 11:20 Obstetrical Discharge Record Final Diagnosis Final Diagnosis: Term delivered Vaginal Delivery Obstetrical Delivery: Spontaneous Condition on Discharge Physical Assessment Last Vitals: VS - Last 72 Hours, by Label Date Temp Pulse Resp B/P (MAP) Pulse Ox O2 O2 Flow FiO2 Time Delivery Rate 05/09/18 98.2 93 18 130/82 Room Air 08:00 (98) 05/09/18 98.1 87 20 118/87 Room Air 03:20 (97) 05/08/18 98.1 86 19 132/70 Room Air 20:00 (90) 05/08/18 98.9 100 16 128/84 Room Air 16:00 (99) 05/08/18 99.1 89 16 107/62 Room Air 08:15 (77) 05/08/18 97.9 85 17 118/62 Room Air 03:55 (80) 05/07/18 98.3 86 18 126/65 Room Air 20:30 (85) 05/07/18 98.2 72 20 134/74 Room Air 18:00 (94) 05/07/18 98.3 64 20 135/77 Room Air 17:00 (96) Voiding: Yes Bowel Movement: Yes Breast: Soft, non-tender Fundus: Firm Calf Tenderness: No Patient Condition: Good Copies To: CC: RANJIT ORTEZ MD ; JAYSHREE RAY MD May 09, 2018 11:21
[2018-05-09 11:44] VITALS: BP 134/75; PULSE 97; RESP 18
[2018-05-10] MEDS ORDERED: METR500T PO (00:49)
[2018-05-10] MEDS ORDERED: CIPR500T4 PO (00:49)
[2018-05-10] MEDS ORDERED: IBUP-1542 PO (00:49)
[2018-05-10] MEDS ORDERED: CEPH-443 PO (01:05)
== END 2018-05-09 13:55 | disposition home or self-care (01) | DRG 807 ==
LOC: OBT 11:22 → L-D 11:22 → OBT 13:35 → L-D 13:35 → PP1 14:07 → L-D 21:16 → PP1 05-07 16:40
PROVIDERS: ADMIT Specialist; ATTEND Specialist
PROC: 3E033VJ Introduction of Other Hormone into Peripheral Vein, Percutaneous Approach (ICD-10-PCS; 2018-05-05)
PROC: 10E0XZZ Delivery of Products of Conception, External Approach (ICD-10-PCS; principal; 2018-05-07)
PROC: 0HQ9XZZ Repair Perineum Skin, External Approach (ICD-10-PCS; 2018-05-07)
DX: O14.14 Severe pre-eclampsia complicating childbirth (principal); O62.3 Precipitate labor; O36.5930 Maternal care for other known or suspected poor fetal growth, third trimester, not applicable or unspecified; O72.1 Other immediate postpartum hemorrhage; O69.1XX0 Labor and delivery complicated by cord around neck, with compression, not applicable or unspecified; Z3A.34 34 weeks gestation of pregnancy; Z37.0 Single live birth
CPT/HCPCS: 62319; 76818; 80053; 81003; 82962; 84560; 85025; 85610; 85730; 86592; 86850; 86900; 86901; 87340; 88307; 90716; 99464; G0463; J0290; J2405; J2590; J3010; J7120

== ENCOUNTER 2018-05-09 21:01 | Emergency (ER) | payer MEDICAID ==
[~2018-05-09] VITALS: Ht 160 cm; Wt 78.2 kg
[~2018-05-09 21:01] MED LIST changes: +PREN-93 PO
[2018-05-09 21:10] VITALS: Ht 160 cm; Wt 78.2 kg
[2018-05-09] MEDS ORDERED: SODIUM CHLORIDE 0.9% 1L BAG IV* STA (21:28)
[2018-05-09] MEDS ORDERED: ACETAMINOPHEN 325 MG TAB PO ONE (23:00)
[2018-05-10] MEDS ORDERED: CEFTRIAXONE 1 GM/50 ML (PMX) 50 ML IVPB ONE (00:30)
--- NOTE | 2018-05-10 00:48 | ERD ---
ER Documentation Chief Complaint Chief Complaint Pt gave vaginally on Friday, c/o CP radiating to back , fever HPI This is a 33 year old female with a past medical history of pre-eclampsia status post induction for vaginal delivery on friday, discharged from the hospital today, returning to the ER this evening for a few hours of feeling generally unwell, fever, chills, lower abdominal pain and a transient episode of chest pain. The patient reports waxing and waning cramping mild to moderate abdominal pain with slight dysuria, unchanged since her delivery. The patient also reported an episode of chest pain radiating to the back, but she does not endorse chest or back pain to me at this time. She does not have shortness of breath or pleuritic pain. She does not report feeling febrile prior to discharge. The patient has had no headache or vision changes. The patient does not endorse neck or back pain. The patient denies lightheadedness or dizziness. The patient denies nausea or vomiting. The patient denies changes to bowel movements. The patient has had no focal deficits. The patient has had no weakness or numbness or tingling to the face or extremities. ROS All systems reviewed and are negative except as per history of present illness. Medications Home Meds Active Scripts Cephalexin* (Keflex*) 500 Mg Capsule, 500 MG PO BID for 7 Days, CAP Prov:KARISSA FERRERA MD 05/10/18 Ibuprofen* (Motrin*) 600 Mg Tab, 600 MG PO Q6H PRN for PAIN AND OR ELEVATED TEMP, #30 TAB Prov:KARISSA FERRERA MD 05/10/18 Metronidazole* (Flagyl*) 500 Mg Tablet, 500 MG PO BID for 7 Days, TAB Prov:KARISSA FERRERA MD 05/10/18 Reported Medications Vit No.124/Iron/FA ( Vitamin Tablet) 1 Each Tablet, 1 EACH PO DAILY, TAB 05/05/18 Discontinued Scripts Acetaminophen* (Tylophen*) 500 Mg Capsule, 1 CAP PO Q6H PRN for PAIN AND OR ELEVATED TEMP, #30 CAP Prov:TEJAS COBOS PA-C 10/27/17 Allergies Allergies: Coded Allergies: No Known Allergy (Verified , 09/01/13) PMhx/Soc History of Surgery: No Hx Neurological Disorder: No Hx Respiratory Disorders: No Hx Cardiac Disorders: No Hx Psychiatric Problems: No Hx Miscellaneous Medical Probl: No Hx Alcohol Use: No Hx Substance Use: No Hx Tobacco Use: No Smoking Status: Never smoker FmHx Family History: No diabetes Physical Exam Vitals Vital Signs Date Temp Pulse Resp B/P (MAP) Pulse Ox O2 O2 Flow FiO2 Time Delivery Rate 05/10/18 99.8 94 30 131/80 98 Room Air 02:38 (97) 05/10/18 99 29 144/68 100 Room Air 00:00 (93) 05/09/18 100.4 23:59 05/09/18 100.3 92 23 155/89 100 Nasal 2.0 21:38 (111) Cannula 05/09/18 Nasal 2 21:35 Cannula 05/09/18 103.4 115 24 183/87 98 21:10 (119) Physical Exam Const: No apparent distress, well-developed, well-nourished Head: Normocephalic, Atraumatic Eyes: Normal Conjunctiva. Extraocular movements intact. Pupils equal, round and reactive to light ENT: Normal External Ears, Nose and Mouth. Neck: Full range of motion. No meningismus. Resp: Clear to auscultation bilaterally, No wheezes, rales or rhonchi Cardio: Regular rhythm. Tachycardia. No murmurs, rubs or gallops Abd: Soft, non distended. Suprapubic tenderness. Normal bowel sounds. No palpable boggy uterus. Skin: No petechiae or rashes Back: No midline tenderness. No CVA tenderness Ext: No cyanosis, or edema Neur: Awake and alert, oriented 4. Cranial nerves intact. No facial droop. Normal strength, sensation and coordination. Psych: Normal Mood and Affect Result Diagram: 05/09/18212905/09/182129 Results 24 hrs Laboratory Tests Test 05/09/18 21:30 05/09/18 22:40 05/09/18 23:46 05/10/18 00:51 White Blood Count 14.1 10^3/ul Red Blood Count 3.39 10^6/ul Hemoglobin 10.5 g/dl Hematocrit 30.6 % Mean Corpuscular 90.3 fl Volume Mean Corpuscular 31.0 pg Hemoglobin Mean Corpuscular 34.3 g/dl Hemoglobin Concent Red Cell 13.9 % Distribution Width Platelet Count 172 10^3/UL Mean Platelet 10.2 fl Volume Immature 2.300 % Granulocytes % Neutrophils % 85.1 % Lymphocytes % 7.0 % Monocytes % 5.3 % Eosinophils % 0.0 % Basophils % 0.3 % Nucleated Red Blood 0.2 /100WBC Cells % Immature 0.330 10^3/ul Granulocytes # Neutrophils # 12.0 10^3/ul Lymphocytes # 1.0 10^3/ul Monocytes # 0.8 10^3/ul Eosinophils # 0.0 10^3/ul Basophils # 0.0 10^3/ul Nucleated Red Blood 0.0 10^3/ul Cells # Prothrombin Time 11.7 Sec Prothrombin Time 0.9 Ratio INR International 0.85 Normalized Ratio Activated 29.4 Sec Partial Thromboplas t Time Sodium Level 138 mmol/L Potassium Level 3.7 mmol/L Chloride Level 108 mmol/L Carbon Dioxide 21 mmol/L Level Anion Gap 9 Blood Urea Nitrogen 10 mg/dl Creatinine 0.75 mg/dl Est Glomerular > 60 mL/min Filtrat Rate mL/min Glucose Level 116 mg/dl Lactic Acid Level 1.3 mmol/L 0.9 mmol/L 1.0 mmol/L Calcium Level 9.2 mg/dl Total Bilirubin 0.1 mg/dl Direct Bilirubin 0.00 mg/dl Indirect Bilirubin 0.1 mg/dl Aspartate Amino 27 IU/L Transf (AST/SGOT) Alanine 20 IU/L Aminotransferase (A LT/SGPT) Alkaline 147 IU/L Phosphatase Troponin I < 0.012 ng/ml Total Protein 6.4 g/dl Albumin 3.2 g/dl Globulin 3.20 g/dl Albumin/Globulin 1.00 Ratio Urine Color RED Urine Clarity SLIGHTLY CLOUDY Urine pH 6.0 Urine Specific 1.005 Roland Urine Ketones NEGATIVE mg/dL Urine Nitrite NEGATIVE mg/dL Urine Bilirubin NEGATIVE mg/dL Urine Urobilinogen NEGATIVE mg/dL Urine Leukocyte 3+ Esequiel/ul Esterase Urine Microscopic > 182 /HPF RBC Urine Microscopic 76 /HPF WBC Urine Squamous MODERATE /HPF Epithelial Cells Urine Bacteria MODERATE /HPF Urine Mucus FEW /HPF Urine Hemoglobin 3+ mg/dL Urine Glucose NEGATIVE mg/dL Urine Total Protein 1+ mg/dl Current Medications Medications Dose Sig/Lalita Start Time Status Last (Trade) Ordered Route PRN Stop Time Admin Dose Reason Admin Sodium 2,350 ml BOLUS OVER 2 05/09/18 DC 05/09/18 Chloride HOURS STAT 21:28 05/09/18 21:31 (NS) IV* 21:29 650 mg ONCE ONCE 05/09/18 DC 05/09/18 Acetaminophen PO 23:00 05/09/18 23:59 (Tylenol 23:01 Tab) Ceftriaxone 50 ml @ ONCE ONCE 05/10/18 DC 05/10/18 Sodium 100 mls/hr IVPB 00:30 05/10/18 00:42 00:59 Procedures/MDM MDM The patient's presentation warrants further investigation. Previous medical records, if available, were reviewed. LABS The patient's laboratory testing was obtained and reviewed. No emergent eagle tment was required unless described below. CBC: Mild leukocytosis, potentially concerning for an infection. No E/o severe anemia or thrombocytopenia Chemistry: No E/o severe acidosis or alkalosis or renal failure or liver disease or diabetic ketoacidosis PT/INR: No E/o significant coagulopathy Lactate: No E/o severe sepsis Troponin: No E/o acute ischemia Urine: E/o acute infection with hematuria IMAGING Imaging and Radiology interpretation reviewed. CXR FINDINGS: The cardiac silhouette is magnified. The aortic arch is unremarkable. There is no focal consolidation, vascular congestion or pleural effusion. There is no pneumothorax. IMPRESSION: No evidence for active cardiopulmonary disease. Electronically viewed and signed by .Stas Harrell MD, MD on 05/09/2018 21:39 Ultrasound pelvis IMPRESSION: 1. Enlarged heterogeneous post gravid uterus with thickening of the endometrium and a small amount of fluid in the endometrial cavity but no evidence of retained products of conception, the endometrium may have blood clots. 2. There is no evidence of hypervascular blood flow of the endometrium to suggest the presence of endometritis. 3. The ovaries are not visualized. Electronically viewed and signed by Physician Luda on 05/10/2018 00:27 TREATMENT/DISPOSITION The patient presents 4 days status post vaginal delivery with fever, chills, tachycardia, continued lower abdominal discomfort. A sepsis workup was completed given that the patient did not meet criteria for a systemic inflammatory response when she first arrived. She was given IV fluids in the emergency department in addition to Tylenol. This resolved both her fever and her tachycardia, and she endorsed significant improvement of her generalized symptoms. The patient's urinalysis is concerning for possible urinary tract infection. She is given a dose of Rocephin in the emergency department. While the patient's pelvic ultrasound is reassuring, I was still concerned about the possibility of endometritis. I discussed the case with Dr. Klein, the on-call coppersmith helper who had actually seen the patient earlier in the day. She said that despite the reassuring ultrasound, she agreed to that endometritis was still a possible etiology of her symptoms. She recommended that the patient be discharged with prescriptions for a week of Keflex and Flagyl. These will be provided. The patient also reported a transient episode of chest pain, but the pain had resolved by the time I assessed her. Her cardiopulmonary exam was unremarkable aside from tachycardia, which resolved once she was treated for her fever. The patient's troponin is negative. I have very low suspicion for a cardiopulmonary process. I have low suspicion for acute coronary syndrome. I have low suspicion for pulmonary embolism. The patient's chest xray does not reveal pneumonia or pneumothorax or pleural effusions or pulmonary edema. The patient does not have a widened mediastinum and does not have signs or symptoms con cerning for thoracic aortic aneurysm or dissection. The patient does not have pneumomediastinum or signs concerning for esophageal tear or rupture. The patient has no clinical or radiographic signs of pericardial effusion or tamponade. The patient does not have pneumoperitoneum and I have decreased suspicion of viscus perforation as possible referred pain. The patient's blood pressure was slightly elevated, but not emergently so. The patient is being treated for preeclampsia and will follow up with her coppersmith helper. Upon reevaluation of the patient, symptoms have improved. No emergent diagnoses were identified. At this time, I feel that the patient stable for discharge. The patient was instructed to follow-up with a primary care physician in 1-3 days. The patient will be given strict precautions with which to return to the emergency department. Prescriptions: Keflex, Flagyl Disclaimer: Inadvertent spelling and grammatical errors are likely due to EHR/dictation software use and do not reflect on the overall quality of patient care. Note that the electronic time recorded on this note does not necessarily reflect the actual time of the patient encounter. Departure Diagnosis: Primary Impression: Urinary tract infection Urinary tract infection type: acute cystitis Hematuria presence: with hematuria Qualified Codes: N30.01 - Acute cystitis with hematuria Additional Impressions: Fever Fever type: unspecified Qualified Codes: R50.9 - Fever, unspecified Tachycardia Leukocytosis Leukocytosis type: unspecified Qualified Codes: D72.829 - Elevated white blood cell count, unspecified Normocytic anemia Endometritis Condition: Stable KARISSA FERRERA MD May 10, 2018 00:48
[2018-05-10] MEDS ORDERED: CIPR500T4 PO (00:49)
[2018-05-10] MEDS ORDERED: IBUP-1542 PO (00:49)
[2018-05-10] MEDS ORDERED: METR500T PO (00:49)
[2018-05-10] MEDS ORDERED: CEPH-443 PO (01:05)
[2018-05-10 02:38] VITALS: BP 131/80; PULSE 94; RESP 30
== END 2018-05-10 02:40 | disposition home or self-care (01) ==
LOC: E/R 21:01
DX: N30.01 Acute cystitis with hematuria (principal); R00.0 Tachycardia, unspecified; D64.9 Anemia, unspecified; D72.829 Elevated white blood cell count, unspecified; N71.9 Inflammatory disease of uterus, unspecified; R07.9 Chest pain, unspecified
CPT/HCPCS: 36415; 71045; 76856; 80053; 81001; 83605; 84484; 85025; 85610; 85730; 87040; 87086; 93005; 96374; J0696; J7030; Z7502; Z7610

== ENCOUNTER 2018-05-16 17:29 | Emergency (ER) | payer MEDICAID ==
[~2018-05-16] VITALS: Ht 165.1 cm; Wt 73.2 kg
[~2018-05-16 17:29] MED LIST changes: -ACET500C5 PO; +CEPH-443 PO; +IBUP-1542 PO; +METR500T PO
[2018-05-16 17:40] VITALS: Ht 165.1 cm; Wt 73.2 kg
[2018-05-16] MEDS ORDERED: KETOROLAC 15 MG INJ IV STA (18:01)
[2018-05-16] MEDS ORDERED: SOD CHLORIDE 0.9% 100 ML ONE (19:21)
[2018-05-16] MEDS ORDERED: IOHEXOL 300MG/ML 150 ML BTL ONE (19:21)
[2018-05-16] MEDS ORDERED: NITR-58 PO (20:17)
[2018-05-16] MEDS ORDERED: IBUP-1542 PO (20:17)
[2018-05-16] MEDS ORDERED: POLY17PO6 PO (20:17)
--- NOTE | 2018-05-16 20:20 | ERD ---
ER Documentation Chief Complaint Chief Complaint abdominal pain x 2 days, vaginal delivery may.07 HPI 33-year-old female presents with lower abdominal pain last 2 days. She is approximately 11 days . She has no significant vaginal bleeding. She was recently treated for UTI. She was prescribed unknown medications. She is a G5 para 5. She feels more distended in the lower abdomen than she believes she should be. ROS All systems reviewed and are negative except as per history of present illness. Medications Home Meds Active Scripts Nitrofurantoin Monohyd Macrocr* (Macrobid*) 100 Mg Capsr, 100 MG PO BID for 7 Days, CAP Prov:ROSIBEL VILLASENOR MD 05/16/18 Ibuprofen* (Motrin*) 600 Mg Tab, 600 MG PO Q6, #15 TAB Prov:ROSIBEL VILLASENOR MD 05/16/18 Polyethylene Glycol* (Miralax*) 17 Gm Powd.pack, 17 GM PO DAILY, #7 Prov:ROSIBEL VILLASENOR MD 05/16/18 Cephalexin* (Keflex*) 500 Mg Capsule, 500 MG PO BID for 7 Days, CAP Prov:KARISSA FERRERA MD 05/10/18 Ibuprofen* (Motrin*) 600 Mg Tab, 600 MG PO Q6H PRN for PAIN AND OR ELEVATED TEMP, #30 TAB Prov:KARISSA FERRERA MD 05/10/18 Metronidazole* (Flagyl*) 500 Mg Tablet, 500 MG PO BID for 7 Days, TAB Prov:KARISSA FERRERA MD 05/10/18 Reported Medications Vit No.124/Iron/FA ( Vitamin Tablet) 1 Each Tablet, 1 EACH PO DAILY, TAB 05/05/18 Allergies Allergies: Coded Allergies: No Known Allergy (Verified , 09/01/13) PMhx/Soc History of Surgery: No Anesthesia Reaction: No Hx Neurological Disorder: No Hx Respiratory Disorders: No Hx Cardiac Disorders: No Hx Psychiatric Problems: No Hx Miscellaneous Medical Probl: No Hx Alcohol Use: No Hx Substance Use: No Hx Tobacco Use: No Smoking Status: Never smoker Physical Exam Vitals Vital Signs Date Temp Pulse Resp B/P (MAP) Pulse Ox O2 O2 Flow FiO2 Time Delivery Rate 05/16/18 97.9 90 18 147/67 100 17:40 (93) Physical Exam Const: No acute distress Head: Atraumatic Eyes: Normal Conjunctiva ENT: Normal External Ears, Nose and Mouth. Neck: Full range of motion. No meningismus. Resp: Clear to auscultation bilaterally Cardio: Regular rate and rhythm, no murmurs Abd: Soft, non tender, mild lower abdominal distention without focal tenderness. No tenderness McBurney's point. Normal bowel sounds Skin: No petechiae or rashes Back: No midline or flank tenderness Ext: No cyanosis, or edema Neur: Awake and alert Psych: Normal Mood and Affect Result Diagram: 05/16/18180905/16/181809 Results 24 hrs Laboratory Tests Test 05/16/18 18:10 White Blood Count 11.5 10^3/ul Red Blood Count 3.87 10^6/ul Hemoglobin 11.7 g/dl Hematocrit 35.5 % Mean Corpuscular Volume 91.7 fl Mean Corpuscular Hemoglobin 30.2 pg Mean Corpuscular Hemoglobin Concent 33.0 g/dl Red Cell Distribution Width 13.8 % Platelet Count 451 10^3/UL Mean Platelet Volume 9.3 fl Immature Granulocytes % 2.700 % Neutrophils % 70.5 % Lymphocytes % 20.1 % Monocytes % 4.9 % Eosinophils % 1.5 % Basophils % 0.3 % Nucleated Red Blood Cells % 0.0 /100WBC Immature Granulocytes # 0.310 10^3/ul Neutrophils # 8.1 10^3/ul Lymphocytes # 2.3 10^3/ul Monocytes # 0.6 10^3/ul Eosinophils # 0.2 10^3/ul Basophils # 0.0 10^3/ul Nucleated Red Blood Cells # 0.0 10^3/ul Urine Color YELLOW Urine Clarity SLIGHTLY CLOUDY Urine pH 5.0 Urine Specific Coulters 1.013 Urine Ketones NEGATIVE mg/dL Urine Nitrite NEGATIVE mg/dL Urine Bilirubin NEGATIVE mg/dL Urine Urobilinogen NEGATIVE mg/dL Urine Leukocyte Esterase 2+ Esequiel/ul Urine Microscopic RBC > 182 /HPF Urine Microscopic WBC 68 /HPF Urine Bacteria FEW /HPF Urine Mucus FEW /HPF Urine Hemoglobin 3+ mg/dL Urine Glucose NEGATIVE mg/dL Urine Total Protein NEGATIVE mg/dl Sodium Level 143 mmol/L Potassium Level 4.0 mmol/L Chloride Level 106 mmol/L Carbon Dioxide Level 25 mmol/L Anion Gap 12 Blood Urea Nitrogen 17 mg/dl Creatinine 0.80 mg/dl Est Glomerular Filtrat Rate mL/min > 60 mL/min Glucose Level 102 mg/dl Calcium Level 9.1 mg/dl Total Bilirubin 0.2 mg/dl Direct Bilirubin 0.00 mg/dl Indirect Bilirubin 0.2 mg/dl Aspartate Amino Transf (AST/SGOT) 42 IU/L Alanine Aminotransferase (ALT/SGPT) 49 IU/L Alkaline Phosphatase 165 IU/L Total Protein 7.6 g/dl Albumin 3.9 g/dl Globulin 3.70 g/dl Albumin/Globulin Ratio 1.05 Lipase 169 U/L Beta HCG, Quantitative 9.5 mIU/ml Current Medications Medications Dose Sig/Lalita Start Time Status Last (Trade) Ordered Route PRN Stop Time Admin Dose Reason Admin Ketorolac 15 mg ONCE STAT 05/16/18 DC 05/16/18 Tromethamine IV 18:01 05/16/18 18:32 (Toradol) 18:03 IV Flush 10 ml STK-MED 05/16/18 DC (NS 10 ml) ONCE .ROUTE 19:21 05/16/18 19:22 Sodium 100 ml @ ud STK-MED 05/16/18 DC Chloride ONCE .ROUTE 19:21 05/16/18 19:22 Iohexol 150 ml STK-MED 05/16/18 DC (Omnipaque ONCE .ROUTE 19:21 05/16/18 300mg/ ml) 19:22 Ceftriaxone 50 ml @ ONCE ONCE 05/16/18 Sodium 100 mls/hr IVPB 20:30 05/16/18 20:59 Procedures/MDM Patient presents with lower abdominal pain distention between 9 days of uncertain etiology. She has no signs of obstruction, SIRS criteria. Urine shows white blood cells and hemoglobin. Urine was sent for culture given recent treatment for UTI. CBC and CMP showed no significant abnormalities. Patient has a minimal leukocytosis of 11.9. Quantitative hCG is 9. This is consistent with recent state. CT abdomen pelvis shows no acute abnormalities. She has a findings consistent with a uterus. She does have signs of constipation. There is no signs of abscess, additional acute abnormalities. Patient was given Rocephin 1 g IV and Toradol 15 mg IV. Patient was treated with Macrobid while we await urine culture. She will be given MiraLAX as well for findings of constipation which may be contributing to distention and dis comfort. The patient was stable with no new complaints during the ER course. Clinically, there is no current evidence to suggest meningitis, sepsis, acute abdomen, pneumonia, stroke, acute coronary syndrome, pulmonary embolism, aortic dissection or any other emergent condition appearing to require further evaluation or hospitalization. Patient counseled regarding my diagnostic impression and care plan. Prior to discharge all questions answered. Pt agrees with treatment plan and understands strict return precautions. Pt is instructed to follow up with primary care provider within 24-48 hours. Precautionary instructions provided including instructions to return to the ER if not improving or for any worsening or changing symptoms or concerns. Departure Diagnosis: Primary Impression: Abdominal pain Abdominal location: lower abdomen, unspecified Qualified Codes: R10.30 - Lower abdominal pain, unspecified Additional Impression: Urinary tract infection Urinary tract infection type: acute cystitis Hematuria presence: without hematuria Qualified Codes: N30.00 - Acute cystitis without hematuria Condition: Stable Patient Instructions: Understanding Urinary Tract Infections (UTIs), Constipation (Adult) Referrals: [facility] (PCP) Additional Instructions: Urine shows signs of infection we will treat for this. CT scan shows constipation. CT otherwise normal. Recheck for fevers, vomiting, new worsening symptoms with primary care doctor. ROSIBEL VILLASENOR MD May 16, 2018 20:20
[2018-05-16] MEDS ORDERED: CEFTRIAXONE 1 GM/50 ML (PMX) 50 ML IVPB ONE (20:30)
[2018-05-16 20:48] VITALS: BP 150/89; PULSE 92; RESP 19
== END 2018-05-16 21:14 | disposition home or self-care (01) ==
LOC: FTE 17:29
DX: O99.89 Other specified diseases and conditions complicating pregnancy, childbirth and the puerperium (principal); O86.22 Infection of bladder following delivery; R10.30 Lower abdominal pain, unspecified; B96.89 Other specified bacterial agents as the cause of diseases classified elsewhere
CPT/HCPCS: 36415; 74177; 80053; 81001; 83690; 84702; 85025; 87086; 96365; 96375; J0696; J1885; Q9967; Z7502; Z7610